=== PATIENT | male | born 1940 | race American Indian/Alaskan Native ===

== ENCOUNTER 2016-09-08 07:55 | Day surgery (SDC) | payer BC, OTHER ==
--- NOTE | ~2016-09-08 | EGD ---
EGD REPORT [facility] [address] [address] NAME: WALKER ESCOBEDO : 40 STATUS : REG [facility] [place] PAT#: [id number] AGE: 75 ADM/REG DATE : 09/08/16 MR#: [id number] REPORT SERV DATE: 09/08/16 DICTATED BY: SON BARAJAS DATE: 09/08/16 REPORT STATUS : Draft TRANSCRIBED BY: [facility] DATE: 09/08/16 Endoscopy Center Patient Name: Walker Escobedo Date of : 1940 Attending MD: SON BARAJAS MD Procedure Date No Time: 09/08/2016 Procedure: Upper GI endoscopy Indications: Iron deficiency anemia, Dyspepsia, Heartburn Referring MD: REGINA CARBALLO Medicines: Propofol per Anesthesia Complications: No immediate complications. Procedure: Pre-Anesthesia Assessment: - ASA Grade Assessment: II - A patient with mild systemic disease. After obtaining informed consent, the endoscope was passed under direct vision. Throughout the procedure, the patient's blood pressure, pulse, and oxygen saturations were monitored continuously. The GIF [id number] was introduced through the mouth, and advanced to the second part of duodenum. The upper GI endoscopy was accomplished without difficulty. The patient tolerated the procedure well. Findings: LA Grade A (one or more mucosal breaks less than 5 mm, not extending between tops of 2 mucosal folds) esophagitis with no bleeding was found. Diffuse mild inflammation characterized by erosions and erythema was found in the stomach. Biopsies were taken with a cold forceps for histology. The examined duodenum was normal. Biopsies were taken with a cold forceps for histology. Impression: - LA Grade A reflux esophagitis. - Chronic gastritis. Biopsied. - Normal examined duodenum. Biopsied. Recommendation: - Discharge patient to home (ambulatory). Procedure Code(s): --- Professional --- 57689, Esophagogastroduodenoscopy, flexible, transoral; with biopsy, single or multiple Diagnosis Code(s): --- Professional --- K21.0, Gastro-esophageal reflux disease with esophagitis K29.50, Unspecified chronic gastritis without bleeding EGD REPORT [address] [address] NAME: WALKER ESCOBEDO : 40 STATUS : REG [facility] [place] PAT#: [id number] AGE: 75 ADM/REG DATE : 09/08/16 MR#: [id number] REPORT SERV DATE: 09/08/16 DICTATED BY: SON BARAJAS. DATE: 09/08/16 REPORT STATUS : Draft TRANSCRIBED BY: [employer] DATE: 09/08/16 D50.9, Iron deficiency anemia, unspecified K30, Functional dyspepsia R12, Heartburn CPT copyright 2013 [employer]. All rights reserved. The codes documented in this report are preliminary and upon plunger shovel operator review may be revised to meet current compliance requirements. Son Barajas MD SON BARAJAS MD 09/08/2016 10:07 AM This report has been signed electronically. Number of Addenda: 0 Note Initiated On: 09/08/2016 9:57 AM Scope Withdrawal Time 0 hours 0 minutes [address] [place] [id number]
--- NOTE | ~2016-09-08 | EGD ---
EGD REPORT [facility] [address] [address] NAME: WALKER ESCOBEDO : 40 STATUS : REG [facility]#: [id number] AGE: 75 ADM/REG DATE : 09/08/16 MR#: [id number] REPORT SERV DATE: 09/08/16 DICTATED BY: SON BARAJAS DATE: 09/08/16 REPORT STATUS : Draft TRANSCRIBED BY: [facility] DATE: 09/08/16 Endoscopy Center Patient Name: Walker Escobedo Date of : 1940 Attending MD: SON BARAJAS MD Procedure Date No Time: 09/08/2016 Procedure: Colonoscopy Indications: Iron deficiency anemia Referring MD: REGINA CARBALLO Medicines: Propofol per Anesthesia Complications: No immediate complications. Procedure: Pre-Anesthesia Assessment: - ASA Grade Assessment: II - A patient with mild systemic disease. After I obtained informed consent, the scope was passed under direct vision. Throughout the procedure, the patient's blood pressure, pulse, and oxygen saturations were monitored continuously. The CF [id number] was introduced through the anus and advanced to the cecum, identified by appendiceal orifice and ileocecal valve. The colonoscopy was performed without difficulty. The patient tolerated the procedure well. The quality of the bowel preparation was good. Findings: The perianal and digital rectal examinations were normal. A sessile polyp was found at the hepatic flexure. The polyp was 4 mm in size. The polyp was removed with a cold biopsy forceps. Resection and retrieval were complete. Multiple small and large-mouthed diverticula were found in the recto-sigmoid colon, in the sigmoid colon, in the descending colon, at the splenic flexure, in the transverse colon, at the hepatic flexure and in the ascending colon. A frond-like/villous non-obstructing medium-sized mass was found in the sigmoid colon. The mass was non-circumferential. The mass measured two cm in length. In addition, its diameter measured twenty mm. No bleeding was present. This tumor was biopsied with a cold forceps for histology. The tumor was located at 30 cm from the anus. This tumor had an appearance of a mound which was smooth on the surface. It was not amenable to snare resection. Multiple biopsies wer obtained from the tumor. Spot ink was injected around the tumor to better localize the tumor in the future. Internal hemorrhoids were found during retroflexion and were Grade I EGD REPORT [address] [address] NAME: WALKER ESCOBEDO : 40 STATUS : REG [facility]#: [id number] AGE: 75 ADM/REG DATE : 09/08/16 MR#: [id number] REPORT SERV DATE: 09/08/16 DICTATED BY: SON BARAJAS DATE: 09/08/16 REPORT STATUS : Draft TRANSCRIBED BY: [employer] DATE: 09/08/16 (internal hemorrhoids that do not prolapse). Impression: - One 4 mm polyp at the hepatic flexure. Resected and retrieved. - Diverticulosis in the recto-sigmoid colon, in the sigmoid colon, in the descending colon, at the splenic flexure, in the transverse colon, at the hepatic flexure and in the ascending colon. - Tumor in the sigmoid colon. Removal was not done. Biopsied. - Internal hemorrhoids. The rest of the colon was normal. Recommendation: - Patient has a contact number available for emergencies. The signs and symptoms of potential delayed complications were discussed with the patient. Return to normal activities tomorrow. Written discharge instructions were provided to the patient. - Regular diet. - Patient has a contact number available for emergencies. The signs and symptoms of potential delayed complications were discussed with the patient. Return to normal activities tomorrow. Written discharge instructions were provided to the patient. - Continue present medications. Procedure Code(s): --- Professional --- 19304, Colonoscopy, flexible, proximal to splenic flexure; with biopsy, single or multiple Diagnosis Code(s): --- Professional --- D12.3, Benign neoplasm of transverse colon K64.0, First degree hemorrhoids K57.30, Diverticulosis of large intestine without perforation or abscess without bleeding D49.0, Neoplasm of unspecified behavior of digestive system D50.9, Iron deficiency anemia, unspecified CPT copyright 2013 [employer]. All rights reserved. The codes documented in this report are preliminary and upon laser/electro optics technician review may be revised to meet current compliance requirements. Son Barajas MD EGD REPORT [facility] [address] [address] NAME: WALKER ESCOBEDO : 40 STATUS : REG [facility] [place] PAT#: [id number] AGE: 75 ADM/REG DATE : 09/08/16 MR#: [id number] REPORT SERV DATE: 09/08/16 DICTATED BY: SON BARAJAS. DATE: 09/08/16 REPORT STATUS : Draft TRANSCRIBED BY: [employer] DATE: 09/08/16 SON BARAJAS MD 09/08/2016 10:30 AM This report has been signed electronically. Number of Addenda: 0 Note Initiated On: 09/08/2016 9:57 AM Scope Withdrawal Time 0 hours 12 minutes 5 seconds [address] [place] [id number]
[~2016-09-08 07:55] MED LIST: ASAB PO; CHOLESTEROL MED; FORTAMET1000 MG PO; GLUCPH PO; HYZAAR 50/12.51 TAB PO; HYZAAR1 TAB PO; LOPID6 PO; NEUR300 PO; NEUR800 PO; NEXIUM20 M1 PO; NORCO1 TAB PO; PRILOSEC40 MG PO; PROAMAT5 PO; TRILIPIX45 MG PO; VICTOZA18 MG/3 ML SC
[2016-10-04] MEDS ORDERED: NEXIUM40 PO (08:28)
[2016-10-04] MEDS ORDERED: CENTRUM PO (08:32)
[2016-10-14] MEDS ORDERED: ACET500CAP PO (11:05)
[2016-10-14] MEDS ORDERED: OXYCOD PO (11:06)
== END 2016-09-08 23:59 | disposition home or self-care (01) ==
LOC: DMU 07:55
PROVIDERS: Internal Medicine Gastroenterology
PROC: 0DB98ZX Excision of Duodenum, Via Natural or Artificial Opening Endoscopic, Diagnostic (ICD-10-PCS; 2016-09-08)
PROC: 0DB68ZX Excision of Stomach, Via Natural or Artificial Opening Endoscopic, Diagnostic (ICD-10-PCS; 2016-09-08)
PROC: 0DBN8ZX Excision of Sigmoid Colon, Via Natural or Artificial Opening Endoscopic, Diagnostic (ICD-10-PCS; principal; 2016-09-08 09:30)
PROC: 0DBK8ZX Excision of Ascending Colon, Via Natural or Artificial Opening Endoscopic, Diagnostic (ICD-10-PCS; 2016-09-08 09:30)
DX: D12.5 Benign neoplasm of sigmoid colon (principal); D12.2 Benign neoplasm of ascending colon; K57.30 Diverticulosis of large intestine without perforation or abscess without bleeding; K64.0 First degree hemorrhoids; D50.9 Iron deficiency anemia, unspecified; K30 Functional dyspepsia; I10 Essential (primary) hypertension; E11.9 Type 2 diabetes mellitus without complications; Z88.0 Allergy status to penicillin; Z88.5 Allergy status to narcotic agent; Z98.890 Other specified postprocedural states
CPT/HCPCS: 82962; 88305